=== PATIENT | female | born 1975 | race Caucasian/White ===

== ENCOUNTER → 2021-09-20 13:59 | Outpatient (REF) | payer BC, SELFPAY | LOC: ANHLAB 13:59 | PROVIDERS: PCP Internal Medicine; Visit Provider Nurse Practitioner | DX: C44.712 Basal cell carcinoma of skin of right lower limb, including hip (principal) | CPT/HCPCS: 88305; 88342 ==

== ENCOUNTER 2021-11-21 09:00 | Outpatient (NON) | payer BC, SELFPAY | END 2021-11-21 09:01 | disposition home or self-care (01) | LOC: ANHLAB 11-23 13:00 | PROVIDERS: PCP Internal Medicine; Visit Provider Surgery Plastic and Reconstructive Surgery | DX: D22.5 Melanocytic nevi of trunk (principal) | CPT/HCPCS: 88305; 88342 ==

== ENCOUNTER 2021-11-21 14:12 | Outpatient (NON) | payer BC, SELFPAY | END 2021-11-21 14:13 | disposition home or self-care (01) | LOC: ANHLAB 14:12 | PROVIDERS: PCP Internal Medicine; Visit Provider Surgery Plastic and Reconstructive Surgery | DX: C44.712 Basal cell carcinoma of skin of right lower limb, including hip (principal) | CPT/HCPCS: 88305; 88331 ==

== ENCOUNTER 2022-02-07 17:42 | Emergency (ER) | payer BC, SELFPAY ==
--- NOTE | ~2022-02-07 | CT_ITS ---
EXAMINATION: CT abdomen pelvis wo con DATE: 02/07/2022 21:02 INDICATION: right flank pain TECHNIQUE: Computed tomography (CT) of the abdomen and pelvis was performed without intravenous contr ast. Automated exposure control and iterative reconstruction technique were employed. The dose-length product was 507.93 mGy-cm. COMPARISON: None. FINDINGS: Lower thorax: Unremarkable Liver: Normal. Biliary/Gallbladder: Gallbladder is normal. No bile duct dilation. Pancreas: No mass or duct dilation. Spleen: Normal. Adrenals:No mass. Kidneys: Right mid and lower pole scarring. Simple right upper pole cyst. Mid and lower pole nonobstr ucting renal calculi. Left kidney is normal GI tract: No small or large bowel dilation. Normal appendix. Mesentery/Peritoneum: Mild fat stranding at the level of the celiac axis and the head of the pancreas . No ascites, mass, or free air. Retroperitoneum: No mass. Pelvis: Pelvic organs are within normal limits. Soft Tissues: Soft tissues and body wall unremarkable. Bones: No acute osseous finding. IMPRESSION: Upper mesenteric fat stranding may reflect pancreatitis in the appropriate context, versus nonspecifi c mesenteric edema. No CT evidence of obstructive uropathy. Right nephrolithiasis. Reviewed, dictated and finalized at location K. TRUCTION EQUIPMENT MECHANIC HELPER IMPRESSION: Upper mesenteric fat stranding may reflect pancreatitis in the appropriate cont ext, versus nonspecific mesenteric edema. No CT evidence of obstructive uropath y. Right nephrolithiasis.
[2022-02-07 17:51] VITALS: BP 150/86; PULSE 79; RESP 20; TEMP 36.8; O2SAT 98
[2022-02-07 18:13] LABS: Basophils Percent Auto 0.4 % (0.2-1.2); Eosinophils Absolute Auto 0.1 K/mm3 (0-0.3); Eosinophils Percent Auto 1.9 % (0-4.4); Hematocrit 36.8 % (37.0-47.0); Hemoglobin 12.8 g/dL (12.0-15.0); Immature Granulocyte Absolute 0.01 K/mm3 (0.00-0.031); Immature Granulocyte Percent A 0.1 % (0-0.5); Lymphocytes Absolute Auto 2.52 K/mm3 (0.9-3.2); Lymphocytes Percent Auto 37.4 % (18.3-44.2); Mean Corpuscular HGB Conc 34.8 g/dl (32-36); Mean Corpuscular Hemoglobin 31.5 pg (26-34); Mean Corpuscular Volume 90.6 fl (80-100); Mean Platelet Volume 10.2 fl (7.4-10.4); Monocytes Absolute Auto 0.5 K/mm3 (0.1-0.6); Monocytes Percent Auto 6.7 % (2.6-8.5); Neutrophils Absolute Auto 3.6 K/mm3 (1.3-6.7); Neutrophils Percent Auto 53.5 % (45.5-73.1); Platelet Count Result 263 k/mm3 (150-375); Red Blood Count 4.06 M/mm3 (4.2-5.4); Red Cell Distribution Width 12.4 % (11.5-14.5); White Blood Count 6.7 K/mm3 (4.5-10.0)
[2022-02-07 18:14] LABS: Appearance Urine Clear (Clear); Bilirubin Urine Negative (Negative); Blood Urine 2+ (Negative); Color Urine Light Yellow (Yellow); Glucose Urine UA Negative (Negative); Ketones Urine Negative (Negative); Leukocyte Esterase Ur Negative LEU/UL (Negative); Nitrate Urine Negative (Negative); Protein Urine Negative (Negative); Specific Grav Ur <= 1.005 (1.001-1.035); Urobilinogen Urine 0.2 mg/dL (<2.0)
[2022-02-07 18:16] LABS: Bacteria Urine Trace /hpf; Squamous Epithelial Cell Urine Rare /hpf (Few)
[2022-02-07 18:17] LABS: Add Urine Microscopic? YES
[2022-02-07 18:25] LABS: Alanine Aminotransferase 23 U/L (6-35); Albumin Level 4.9 g/dL (3.5-5.1); Alkaline Phosphatase 54 U/L (38-126); Anion Gap 9 mmol/L (8-16); Aspartate Amino Transferase 35 U/L (14-36); Bilirubin,Total 0.4 mg/dL (0.2-1.3); Blood Urea Nitrogen 17 mg/dL (7-17); Calcium 9.3 mg/dL (8.4-10.2); Carbon Dioxide 27 mmol/L (22-30); Chloride 100 mmol/L (98-107); Estimated CRCL calculation 81 ml/min; Estimated Glomerular Filt Rate > 60; Glucose 140 mg/dL (65-110); Lipase 219 U/L (23-300); Potassium 3.9 mmol/L (3.4-5.0); Sodium 136 mmol/L (137-145)
--- NOTE | 2022-02-07 21:07 | PC.NURSE ---
patient currently refusing IV at this time. Dr. birmingham.
--- NOTE | 2022-02-07 21:44 | ED.GENADULT ---
HPI - General Adult General Chief complaint: Abdominal Pain Stated complaint: R side pain, nausea Time Seen by Provider: 02/07/22 20:34 History of Present Illness HPI narrative: Patient is a 46-year-old female who presents the emergency department with a chief complaint of abdominal and flank pain. Patient reports start having pain in her right flank area radiates to the right upper quadrant and epigastric region. The patient reports that she recently started a new diet patient reports symptoms are not improving or they are worsening Related Data Home Medications Medication Instructions Recorded Confirmed sertraline 50 mg tablet 50 mg PO DAILY 10/01/19 01/13/22 Allergies Allergy/AdvReac Type Severity Reaction Status Date / Time Penicillins Allergy Unknown Rash Verified 02/07/22 20:36 levofloxacin [From Levaquin] AdvReac Severe Rash Verified 02/07/22 20:36 Review of Systems Review of Systems: A 10 system review of systems was completed on the patient and is negative except for what is stated in the HPI. Nursing and ancillary documentation was reviewed. [facility] Past Medical History Medical History AK (actinic keratosis) Social History Social History Smoking status: Never smoker Alcohol intake: never Substance use: never Substance use type: does not use Gender identity (if verbalized by the patient): Female Sexual Orientation (if Verbalized by the Patient): Straight or Heterosexual Exam Narrative: GENERAL: Well-appearing, well-nourished, and in no acute distress. HEAD: Normocephalic, atraumatic. EYES: PERRLA and EOMI. ENT: Nares clear, no rhinorrhea or epistaxis. Mucous membranes moist. NECK: Supple. CHEST: Clear to auscultation. No respiratory distress. HEART: Regular rate and rhythm. No murmur heard. Normal peripheral pulses. ABDOMEN: Soft, nontender, nondistended, normal active bowel sounds. EXTREMITIES: Normal range of motion. No edema. SKIN: Warm, dry, no rash. NEURO: No focal deficits. Alert and oriented x3. PSYCH: Normal mood and affect. Course Course Emergency Course: CT scan showed no evidence of obstructing stone there was question as to whether there is some inflammation around the pancreas is on the CT scan but no evidence of lipase elevation. Vital Signs Vital signs: Vital Signs Temperature 36.8 C 02/07/22 17:51 Pulse Rate 79 02/07/22 17:51 Respiratory Rate 20 02/07/22 17:51 Blood Pressure 150/86 H 02/07/22 17:51 Pulse Oximetry 98 02/07/22 17:51 Oxygen Delivery Room Air 02/07/22 17:51 Temperature 36.8 C 02/07/22 17:51 Pulse Rate 79 02/07/22 17:51 Respiratory Rate 20 02/07/22 17:51 Blood Pressure 150/86 H 02/07/22 17:51 Pulse Oximetry 98 02/07/22 17:51 Oxygen Delivery Room Air 02/07/22 17:51 Medical Decision Making Vital Signs Vital Signs: Vital Signs Temperature 36.8 C 02/07/22 17:51 Pulse Rate 79 02/07/22 17:51 Respiratory Rate 20 02/07/22 17:51 Blood Pressure 150/86 H 02/07/22 17:51 Pulse Oximetry 98 02/07/22 17:51 Oxygen Delivery Room Air 02/07/22 17:51 Temperature 36.8 C 02/07/22 17:51 Pulse Rate 79 02/07/22 17:51 Respiratory Rate 20 02/07/22 17:51 Blood Pressure 150/86 H 02/07/22 17:51 Pulse Oximetry 98 02/07/22 17:51 Oxygen Delivery Room Air 02/07/22 17:51 Lab Data 02/07/22 17:59 02/07/22 17:59 Labs: Lab Results 02/07/22 02/07/22 02/07/22 Range/Units 17:59 17:59 17:59 WBC 6.7 (4.5-10.0) K/mm3 RBC 4.06 L (4.2-5.4) M/mm3 Hgb 12.8 (12.0-15.0) g/dL Hct 36.8 L (37.0-47.0) % MCV 90.6 (80-100) fl MCH 31.5 (26-34) pg MCHC 34.8 (32-36) g/dl RDW 12.4 (11.5-14.5) % Plt Count 263 (150-375) k/mm3 MPV 10.2 (7.4-10.4) fl Immature Gran % (Auto) 0.1 (0-0.5) % Neut %
[2022-02-07 23:48] VITALS: BP 120/79; PULSE 96; RESP 16; O2SAT 99
== END 2022-02-07 23:48 | disposition home or self-care (01) ==
PROVIDERS: Emergency Medicine; Emergency Provider Emergency Medicine; PCP Internal Medicine
DX: R10.84 Generalized abdominal pain (principal); N20.0 Calculus of kidney; R93.2 Abnormal findings on diagnostic imaging of liver and biliary tract
CPT/HCPCS: 36415; 74176; 80053; 81001; 81025; 83690; 85025; 99284

== ENCOUNTER 2022-02-12 09:08 | Inpatient (IN) | payer BC, SELFPAY ==
[2022-02-12] VITALS (32 sets, daily range): BP systolic 93–130; BP diastolic 51–82; PULSE 72–120; RESP 16–22; TEMP 36.4–37.2; O2SAT 93–100; BMI 27.3
--- NOTE | ~2022-02-12 | XR_ITS ---
EXAMINATION: XR retrograde pyelo w/stent RT DATE: 02/12/2022 16:00 SIMULATION ANALYST INDICATION: RT SIDED STENT PLACEMENT WITH RETROGRADE . TECHNIQUE: 5 fluoroscopic images of the right abdomen and pelvis were obtained during right retrograd e pyelography with right-sided stent placement performed by the surgeon. I was not present in the ope rating room. Fluoroscopy exposure time was 24.8 seconds. DAP [id number] mGym2. COMPARISON: CT abdomen and pelvis, same date FINDINGS: Catheter and wire access to the upper collecting system on the right. Moderate right caliectasis. Ext ravasated contrast noted at the right upper pole. Right ureteral stent proximal coil in the right jose al pelvis, distal coil ejecting over the bladder. IMPRESSION: Fluoroscopic documentation of right retrograde pyelography with stent placement. Please refer to the operative note for complete procedural details . Reviewed, dictated and finalized at location K. LATION ANALYST IMPRESSION: Fluoroscopic documentation of right retrograde pyelography with stent placement . Please refer to the operative note for complete procedural details .
--- NOTE | ~2022-02-12 | XR_ITS ---
EXAM: XR abdomen/kub 1V DATE: 02/13/2022 17:16 HISTORY: surgical planning/right ureteral stone . COMPARISON: CT abdomen and pelvis, 02/12/2022. FINDINGS: Minimal bibasilar atelectasis. Right ureteral stent, in good position. Normal bowel gas pa ttern. No organomegaly. Multiple right inferior pole calcifications measuring 11, 4, and 3 mm. 11 mm calcification likely projects over the right UPJ as seen in the prior CT. Regional bones and soft tis sues normal for age. IMPRESSION: Right ureteral stent, in good position. Right nephrolithiasis. Reviewed, dictated and finalized at location K. CULTURAL EQUIPMENT DESIGN ENGINEER
--- NOTE | ~2022-02-12 | CT_ITS ---
EXAMINATION:CT diagnostic chest w con DATE: 02/12/2022 12:56 INDICATION: Right upper quadrant abdominal pain. Right back pain. TECHNIQUE: Computed tomography (CT) of the chest was performed with 75 mL Omnipaque 350 intravenous c ontrast. Automated exposure control and iterative reconstruction technique were employed. The dose-le ngth product (DLP) was 146.05 mGy-cm. COMPARISON: CT abdomen and pelvis 02/07/2022 FINDINGS: There is mild scarring at the lung apices. There is mild atelectasis bilaterally. There are small pleural effusions. The heart size is normal. No pericardial effusion. There is edema in right perinephric space. There is mild thoracic spondylosis. IMPRESSION: 1. Small pleural effusions. 2. Partially visualized edema in right perinephric space. Given the right-sided kidney stones seen on the prior CT, consider CT abdomen and pelvis without contrast to rule out ureteral stone. Reviewed, dictated and finalized at location A. FINISHER IMPRESSION: 1. Small pleural effusions. 2. Partially visualized edema in right perinephric space. Given the right-sided kidney stones seen on the prior CT, consider CT abdomen and pelvis without con trast to rule out ureteral stone.
--- NOTE | ~2022-02-12 | CT_ITS ---
EXAMINATION: CT abdomen pelvis wo con DATE: 02/12/2022 13:34 INDICATION: Right upper quadrant abdominal pain. TECHNIQUE: Computed tomography (CT) of the abdomen and pelvis was performed without intravenous contr ast. Automated exposure control and iterative reconstruction technique were employed. The dose-length product was 540.65 mGy-cm. COMPARISON: CT abdomen and pelvis 02/07/2022 FINDINGS: The visualized portions of the lung bases demonstrate mild atelectasis. There are small ple ural effusions. The heart size is normal. No pericardial effusion. The liver, gallbladder, spleen, pa ncreas, adrenal glands, and left kidney are normal. There is moderate atrophy of right kidney. There is a 7 mm stone in proximal right ureter. There is contrast in the renal collecting system from the C T earlier today. There is mild right hydronephrosis. There is calyceal rupture in right kidney upper pole with urinoma with contrast in the right perinephric space. There are no dilated loops of bowel. The appendix is normal. There are no pathologically enlarged lymph nodes. There is trace ascites in r ight paracolic gutter. There is mild thoracic spondylosis. IMPRESSION: 1. 7 mm stone in proximal right ureter with mild right hydronephrosis and upper pole calyceal rupture with right retroperitoneal urinoma. 2. Moderate atrophy of right kidney. 3. Small pleural effusions. Reviewed, dictated and finalized at location A. ER CUTTER
--- NOTE | ~2022-02-12 | XR_ITS ---
EXAMINATION: XR abdomen/kub 1V INDICATION: Postoperative abdominal pain TECHNIQUE: Supine view of the abdomen is obtained. COMPARISON: 02/13/2022 FINDINGS: A right internal ureteral stent is in expected position. Again seen is a 9 mm stone adjacen t to the proximal stent. There are adjacent 3 mm stones of the right kidney lower pole. No additional urolithiasis is identified. The bowel gas pattern is normal. IMPRESSION: 1. Right internal ureteral stent in expected position with stable stones in the right kidney lower po le and adjacent to the proximal aspect of the stent. Reviewed, dictated and finalized at location A. [employer] IMPRESSION: 1. Right internal ureteral stent in expected position with stable stones in the right kidney lower pole and adjacent to the proximal aspect of the stent.
--- NOTE | ~2022-02-12 | CT_ITS ---
EXAMINATION: CT abdomen pelvis wo/w con DATE: 02/15/2022 15:48 INDICATION: Severe postoperative pain TECHNIQUE: Computed tomography (CT) of the abdomen and pelvis was performed without intravenous contr ast. CT of the abdomen and pelvis was then performed with a total of 130 mL Omnipaque 350 intravenous contrast using a double-bolus technique for simultaneous opacification of the renal parenchyma and r enal collecting system. The dose-length product (DLP) was 2179.99 mGy-cm. Automated exposure control and iterative reconstruction technique were employed. COMPARISON: None FINDINGS: There is a [id number] size right pleural effusion with passive atelectasis of the ri ght lower lobe. There is a small left pleural effusion with mild dependent atelectasis. The heart siz e is normal. The liver, spleen, pancreas, gallbladder, and adrenal glands are normal. A right interna l ureteral stent has been placed in expected position. There is a 7 mm stone adjacent to the proximal aspect of the stent. Previously described calyceal rupture and urinoma in the right perinephric spac e persists but has decreased in size. There is a small volume of ascites. The left kidney is unremark able. No pathologically enlarged abdominal or pelvic lymph nodes are identified. There is no free int raperitoneal gas or evidence of bowel obstruction. Cain catheter is present in the bladder. A small amount of gas in the urinary bladder is likely due to the Cain catheter or recent intervention. Ther e is a small left inguinal hernia containing fat. IMPRESSION: 1. Interval placement of a right internal ureteral stent in expected position with 7 mm stone adjacen t to the proximal stent. 2. Persistent but decreased urinoma adjacent to the right kidney. 3. Small to moderate size right and small left pleural effusions with bibasilar atelectasis. Reviewed, dictated and finalized at location A. [employer] IMPRESSION: 1. Interval placement of a right internal ureteral stent in expected position w ith 7 mm stone adjacent to the proximal stent. 2. Persistent but decreased urinoma adjacent to the right kidney. 3. Small to moderate size right and small left pleural effusions with bibasilar atelectasis.
[2022-02-12 09:48] LABS: Basophils Percent Auto 0.1 % (0.2-1.2); Hematocrit 34.4 % (37.0-47.0); Hemoglobin 11.5 g/dL (12.0-15.0); Immature Granulocyte Percent A 1.5 % (0-0.5); Lymphocytes Absolute Auto 0.75 K/mm3 (0.9-3.2); Lymphocytes Percent Auto 5.6 % (18.3-44.2); Mean Corpuscular HGB Conc 33.4 g/dl (32-36); Mean Corpuscular Hemoglobin 30.9 pg (26-34); Mean Corpuscular Volume 92.5 fl (80-100); Mean Platelet Volume 10.9 fl (7.4-10.4); Monocytes Absolute Auto 0.4 K/mm3 (0.1-0.6); Monocytes Percent Auto 3.1 % (2.6-8.5); Neutrophils Absolute Auto 12.1 K/mm3 (1.3-6.7); Neutrophils Percent Auto 89.7 % (45.5-73.1); Platelet Count Result 179 k/mm3 (150-375); Red Blood Count 3.72 M/mm3 (4.2-5.4); Red Cell Distribution Width 12.8 % (11.5-14.5); White Blood Count 13.5 K/mm3 (4.5-10.0)
[2022-02-12 10:01] LABS: Alanine Aminotransferase 56 U/L (6-35); Albumin Level 3.9 g/dL (3.5-5.1); Alkaline Phosphatase 78 U/L (38-126); Anion Gap 6 mmol/L (8-16); Aspartate Amino Transferase 51 U/L (14-36); Bilirubin,Total 1.6 mg/dL (0.2-1.3); Blood Urea Nitrogen 11 mg/dL (7-17); Calcium 8.5 mg/dL (8.4-10.2); Carbon Dioxide 24 mmol/L (22-30); Chloride 100 mmol/L (98-107); Estimated CRCL calculation 72 ml/min; Estimated Glomerular Filt Rate > 60; Glucose 161 mg/dL (65-110); Lipase 42 U/L (23-300); Potassium 4.1 mmol/L (3.4-5.0); Sodium 130 mmol/L (137-145)
[2022-02-12 10:08] LABS: Appearance Urine Clear (Clear); Bilirubin Urine 2+ (Negative); Blood Urine 2+ (Negative); Color Urine Yellow (Yellow); Glucose Urine UA Negative (Negative); Ketones Urine 4+ mg/dL (Negative); Leukocyte Esterase Ur Negative LEU/UL (Negative); Nitrate Urine Negative (Negative); Protein Urine 2+ mg/dL (Negative); Specific Grav Ur 1.025 (1.001-1.035); pH Urine 5.5 (5.0-9.0)
[2022-02-12 10:09] LABS: Bacteria Urine Trace /hpf; Mucus Urine Rare /lpf; Squamous Epithelial Cell Urine Occasional /hpf (Few); WBC Urine 0-3 /hpf
[2022-02-12 10:14] LABS: Add Urine Microscopic? YES
--- NOTE | 2022-02-12 10:59 | ED.ABDPAIN ---
HPI - Abdominal Pain General Chief Complaint: Abdominal Pain Stated Complaint: R BACK PAIN XWK Time Seen by Provider: 02/12/22 10:33 History of Present Illness HPI narrative: This is a 46-year-old female who denies past medical history, returning emergency department complaining of right upper quadrant abdominal pain. Patient states she was here approximately a week ago with similar pain. Reportedly imaging at the time showed mild swelling around the pancreas but no other obvious causes. Patient states she initially had improvement of her pain but approximately 4 days ago had recurrent pain. She was evaluated at an outside emergency department (reportedly with a right upper quadrant ultrasound) again without an obvious cause. Today she complains of sharp 8/10, right upper quadrant abdominal pain radiating from the back to the abdomen without any associated fevers or chills. Related Data Home Medications Medication Instructions Recorded Confirmed sertraline 50 mg tablet 50 mg PO DAILY 10/01/19 01/13/22 Allergies Allergy/AdvReac Type Severity Reaction Status Date / Time Penicillins Allergy Unknown Rash Verified 02/12/22 10:34 levofloxacin [From Levaquin] AdvReac Severe Rash Verified 02/12/22 10:34 Review of Systems Review of Systems: CONSTITUTIONAL: Denies fever, chills, or sweats. EYES: Denies visual changes, redness, or discharge. ENT: Denies rhinorrhea, congestion, sore throat, or otalgia. CARDIOVASCULAR: Denies chest pain, palpitations, or edema. RESPIRATORY: Denies cough or dyspnea. GASTROINTESTINAL: Abdominal pain denies nausea, vomiting, or diarrhea. GENITOURINARY: Denies dysuria or hematuria. SKIN: Denies rash or itching. MUSCULOSKELETAL: Denies back pain, joint pain, or myalgia. NEUROLOGIC: Denies headache, numbness, dizziness, or weakness. PSYCHIATRIC: Denies anxiety or depression. [facility] Past Medical History Medical History AK (actinic keratosis) Social History Social History Smoking status: Never smoker Alcohol intake: never Substance use: never Substance use type: does not use Gender identity (if verbalized by the patient): Female Sexual Orientation (if Verbalized by the Patient): Straight or Heterosexual Exam Narrative: GENERAL: Well-developed, well-nourished, in moderate distress due to pain HEAD: Normocephalic, atraumatic. EYES: PERRLA and EOMI. ENT: Nares clear, no rhinorrhea or epistaxis. Mucous membranes moist. Oropharynx without tonsillar hypertrophy exudate or other lesions. NECK: Supple. No adenopathy or masses. No carotid bruits or JVD CHEST: Clear to auscultation. No respiratory distress. No wheezes rales or rhonchi HEART: Regular rate and rhythm. No murmur heard. Normal peripheral pulses. ABDOMEN: Soft, tender palpation of the right upper quadrant without rebound, nondistended, normal active bowel sounds. Right CVA tenderness to palpation, no CVA tenderness of the left EXTREMITIES: Normal range of motion. No edema. SKIN: Warm, dry, no rash. NEURO: No focal deficits. Alert and oriented x3. PSYCH: Normal mood and affect. Course Course Emergency Course: 10:56 - Given the patient's recent unremarkable imaging, will obtain a CT of the chest and attempt to spare additional radiation to the abdomen. UA shows small amount of hematuria without changes concerning for UTI. WBC elevated to 13. 13:26 - CT shows perinephric fluid without acute intrathoracic process. Radiology recommends noncon CT abdomen pelvis to evaluate for stone. Reevaluated patient, she states her pain is improved. 13:51 - CT abdomen pelvis demonstrates a 7 mm obstructing stone on the right with upper pole calyceal rupture and urinoma. Urology paged for consult. 14:45 - Discussed patient with urologist, Dr. Valle, who accepts the patient to OR for stent placement. Discussed recommendations with the
[2022-02-12] MEDS: KETOROLAC 30 MG/ML VIAL (*BKC) IV PUSH (11:05)
[2022-02-12 12:32] LABS: Pregnancy On Board Control Positive; Urine Pregnancy Test Negative
[2022-02-12] MEDS: ONDANSETRON INJ 4 MG/2 ML VIAL IV PUSH (13:52)
[2022-02-12] MEDS: MORPHINE SULFATE (*CRX) 4 MG/ML INJ 6 MG IV PUSH (13:52)
--- NOTE | 2022-02-12 14:50 | PM.IMHP ---
H&P: HPI History of Present Illness Date/Time: 02/12/22 14:50 Chief Complaint: Obstructing 7 mm right proximal ureteral calculus with calyceal rupture and urinoma Narrative: 46 year old female with repeated returns to ER found to have an obstructing 7mm right proximal ureteral calculus. In addition there is a rupture of a fornyx with extravasation and urinoma formation. Review of Systems Review of Systems: All systems reviewed & are unremarkable except as noted in HPI and below PMFSH Past Medical History Medical History AK (actinic keratosis) Social History Social History Smoking status: Never smoker Alcohol intake: never Substance use: never Substance use type: does not use Gender identity (if verbalized by the patient): Female Sexual Orientation (if Verbalized by the Patient): Straight or Heterosexual Meds Home Medications and Allergies Home Medications Medication Instructions Recorded Confirmed Type sertraline 50 mg tablet 50 mg PO DAILY 10/01/19 01/13/22 History Allergies Allergy/AdvReac Type Severity Reaction Status Date / Time Penicillins Allergy Unknown Rash Verified 02/12/22 10:34 levofloxacin [From Levaquin] AdvReac Severe Rash Verified 02/12/22 10:34 Vital Signs Vital Signs - 24 hr 02/12/22 09:28 02/12/22 10:47 02/12/22 11:01 Temperature 36.7 C Pulse Rate 120 H 74 82 Respiratory Rate 16 18 20 Blood Pressure 112/68 130/78 129/82 Pulse Oximetry 99 100 100 Oxygen Delivery Room Air 02/12/22 11:15 02/12/22 11:30 02/12/22 11:45 Temperature Pulse Rate 84 80 78 Respiratory Rate 18 18 17 Blood Pressure 120/76 115/70 111/65 Pulse Oximetry 97 95 95 Oxygen Delivery 02/12/22 12:00 02/12/22 12:15 02/12/22 12:30 Temperature Pulse Rate 76 80 72 Respiratory Rate 18 18 18 Blood Pressure 112/68 110/59 L 114/68 Pulse Oximetry 97 98 100 Oxygen Delivery 02/12/22 12:58 02/12/22 13:00 02/12/22 13:15 Temperature Pulse Rate 77 77 Respiratory Rate 17 18 Blood Pressure 104/63 103/61 102/64 Pulse Oximetry 99 99 98 Oxygen Delivery 02/12/22 13:37 02/12/22 13:59 02/12/22 14:00 Temperature Pulse Rate Respiratory Rate Blood Pressure 104/65 103/67 Pulse Oximetry 100 100 93 Oxygen Delivery 02/12/22 14:01 02/12/22 14:15 02/12/22 14:16 Temperature Pulse Rate Respiratory Rate Blood Pressure 103/65 110/66 Pulse Oximetry 100 99 100 Oxygen Delivery 02/12/22 14:30 02/12/22 14:31 Temperature Pulse Rate Respiratory Rate Blood Pressure 105/68 Pulse Oximetry 96 100 Oxygen Delivery Exam Const: General: cooperative; No comfortable Resp: Effort & Inspection: normal respiratory effort Cardio: Rate: regular rate Rhythm: regular rhythm H&P: Results Labs Labs: Short CBC 02/12/22 Range/Units 09:38 WBC 13.5 H (4.5-10.0) K/mm3 Hgb 11.5 L (12.0-15.0) g/dL Hct 34.4 L (37.0-47.0) % Plt Count 179 (150-375) k/mm3 BMP 02/12/22 09:38 Sodium 130 L Potassium 4.1 Chloride 100 Carbon Dioxide 24 BUN 11 D Creatinine 0.90 Glucose 161 H Calcium 8.5 Liver Function 02/12/22 Range/Units 09:38 Total Bilirubin 1.6 H (0.2-1.3) mg/dL AST 51 H (14-36) U/L ALT 56 H (6-35) U/L Alkaline Phosphatase 78 (38-126) U/L Albumin 3.9 (3.5-5.1) g/dL Urine 02/12/22 Range/Units 09:49 Urine Color Yellow (Yellow) Urine Appearance Clear (Clear) Urine pH 5.5 (5.0-9.0) Ur Specific [place] 1.025 (1.001-1.035) Urine Protein 2+ H (Negative) mg/dL Urine Glucose (UA) Negative (Negative) mg/dL Assessment and Plan Assessment and plan (1) Right ureteral calculus: Code(s): N20.1 - Calculus of ureter Status: Acute Assessment and Plan: Proceed with cysto, right retrograde, right ureteral stent placem
--- NOTE | 2022-02-12 14:57 | WPDHPUPDATE1 ---
History and Physical Update Update Date/Time: 02/12/22 14:57 History and Physical has been reviewed, including an updated exam of the patient. There are NO changes in the patient's condition. Risks, benefits, and alternatives have been discussed and questions answered. Patient agrees to proceed with procedure.
[2022-02-12] MEDS: SODIUM CHLORIDE 0.9% IV 1,000 ML 125 ML IV CONT (15:06)
[2022-02-12 15:29] LABS: INR 1.3; Prothrombin Time 15.3 Seconds (11.1-14.7)
--- NOTE | 2022-02-12 15:46 | WPDANESEPPF ---
Anes - Initial Pre Proc Eval Procedure: Operation Date: 02/12/22 15:45 Proposed Procedures p Cysto, RPG, Stone Ext, Stent Placement - Jan Valle MD Date/Time: 02/12/22 15:46 Surgeon: Jan Valle MD Pre Op Diagnosis: Kidney Stone Patient Data Age: 46 Gender: F Height: 1.75 m Weight: 79.5 kg Last Vital Signs Temp 36.7 C 02/12/22 09:28 Pulse 77 02/12/22 13:00 Resp 18 02/12/22 13:00 BP 105/68 02/12/22 14:30 Pulse Ox 100 02/12/22 14:31 O2 Del Method Room Air 02/12/22 09:28 Allergies Allergy/AdvReac Type Severity Reaction Status Date / Time Penicillins Allergy Unknown Rash Verified 02/12/22 10:34 levofloxacin [From Levaquin] AdvReac Severe Rash Verified 02/12/22 10:34 Home Medications Medication Instructions Recorded Confirmed Type sertraline 50 mg tablet 50 mg PO DAILY 10/01/19 01/13/22 History Laboratory Tests 02/12/22 02/12/22 02/12/22 09:38 09:38 09:49 WBC 13.5 K/mm3 H K/mm3 (4.5-10.0) RBC 3.72 M/mm3 L M/mm3 (4.2-5.4) Hgb 11.5 g/dL L g/dL (12.0-15.0) Hct 34.4 % L % (37.0-47.0) MCV 92.5 fl fl (80-100) MCH 30.9 pg pg (26-34) MCHC 33.4 g/dl g/dl (32-36) RDW 12.8 % % (11.5-14.5) Plt Count 179 k/mm3 k/mm3 (150-375) MPV 10.9 fl H fl (7.4-10.4) Immature Gran % (Auto) 1.5 % H % (0-0.5) Neut % (Auto) 89.7 % H % (45.5-73.1) Lymph % (Auto) 5.6 % L % (18.3-44.2) [place] % (Auto) 3.1 % % (2.6-8.5) Eos % (Auto) 0.0 % % (0-4.4) Baso % (Auto) 0.1 % L % (0.2-1.2) Lymph # (Auto) 0.75 K/mm3 L K/mm3 (0.9-3.2) [place] # (Auto) 0.4 K/mm3 K/mm3 (0.1-0.6) Eos # (Auto) 0.0 K/mm3 K/mm3 (0-0.3) Baso # (Auto) 0.0 K/mm3 K/mm3 (0.0-0.1) Abs Immat Gran (auto) 0.20 K/mm3 H K/mm3 (0.00-0.031) Absolute Neuts (auto) 12.1 K/mm3 H K/mm3 (1.3-6.7) Absolute Nucleated RBC 0.0 K/mm3 K/mm3 (0.0-0.012) Nucleated RBC % 0.0 % % (0.0-0.2) PT INR Sodium 130 mmol/L L mmol/L (137-145) Potassium 4.1 mmol/L mmol/L (3.4-5.0) Chloride 100 mmol/L mmol/L (98-107) Carbon Dioxide 24 mmol/L mmol/L (22-30) Anion Gap 6 mmol/L L mmol/L (8-16) BUN 11 mg/dL D mg/dL (7-17) Creatinine 0.90 mg/dL mg/dL (0.7-1.0) Estim Creat Clear Calc 72 ml/min ml/min Estimated GFR > 60 (59 - ) Glucose 161 mg/dL H mg/dL (65-110) Calcium 8.5 mg/dL mg/dL (8.4-10.2) Total Bilirubin 1.6 mg/dL H mg/dL (0.2-1.3) AST 51 U/L H U/L (14-36) ALT 56 U/L H U/L (6-35) Alkaline Phosphatase 78 U/L U/L (38-126) Total Protein 7.0 g/dL g/dL (6.3-8.2) Albumin 3.9 g/dL g/dL (3.5-5.1) Lipase 42 U/L U/L (23-300) Urine Color Yellow (Yellow) Urine Appearance Clear (Clear) Urine pH 5.5 (5.0-9.0) Ur Specific [place] 1.025 (1.001-1.035) Urine Protein 2+ mg/dL H mg/dL (Negative) Urine Glucose (UA) Negative mg/dL mg/dL (Negative) Urine Ketones 4+ mg/dL H mg/dL (Negative) Ur Blood (Man) 2+ H (Negative) Urine Nitrate Negative (Negative) Urine Bilirubin 2+ H (Negative) Urine Urobilinogen 1.0 mg/dL mg/dL (<2.0) Leukocyte Esterase Rfl Negative [place]/UL [place]/UL (Negative) Urine RBC 6-10 /hpf H /hpf (0-2) Urine WBC 0-3 /hpf /hpf Ur Squamous Epith Cells Occasional /hpf /hpf (Few) Urine Bacteria Trace /hpf /hpf Urine Mucus Rare /lpf /lpf Urine Test 02/12/22 02/12/22 12:26 15:11 WBC RBC Hgb Hct
[2022-02-12] MEDS: ceFAZolin 2 GM/D5W 50 ML 2 GM/50 ML BAG IVPB (15:54)
[2022-02-12] MEDS: LIDOCAINE HCL 2% GEL UROJET 10 ML PKG MUCOUS MEM (16:06)
--- NOTE | 2022-02-12 16:14 | W.PM.PROC2 ---
Procedure Note - Detailed Date of Procedure 02/12/22 Pre-op Diagnosis Right ureteral calculus with forniceal rupture Post-op Diagnosis Same Procedure Performed cystoscopy, right ureteral stent placement 4.8 Vietnamese contour Surgeon Jan Valle MD Anesthesia General Description of Procedure patient is taken to the operative suite correctly identified. Once anesthesia was obtained she was placed in dorsal lithotomy position and prepped and draped usual sterile fashion. Twenty-two Vietnamese scope was inserted the bladder. There was no tumors noted the right ureteral orifice was cannulated with a guidewire and we were able to manipulated past the impacted stone at the UPJ area. We then placed a 4.8 Vietnamese contour stent with the proximal end coiled in the renal pelvis and the distal in the bladder. There was some efflux of some Cloudy urine. 2% viscous lidocaine was inserted into the urethra patient is taken recovery stable condition. If he does well in recovery she will be discharged home with antibiotics as well as some oxybutynin. She also has narcotics on hand. Will await urine culture plan on outpatient lithotripsy in the near future. Please send a copy this report to my office Estimated Blood Loss 0 Drains Yes Packing No Pathology None sent Complications No immediate complications Condition Stable Disposition PACU
[2022-02-12] MEDS: LACTATED RINGERS 1,000 ML 30 ML IV CONT ×4 (16:18→20:09)
[2022-02-12] MEDS: oxyCODONE HCL (*CRX) 5 MG TAB IR PO (17:50)
[2022-02-12] MEDS: OXYBUTYNIN CHLORIDE 5 MG TABLET PO (18:25)
--- NOTE | 2022-02-12 20:10 | SUR.PHASEII ---
1811- Dr. Valle notified of patient's continued pain along with low BP 90/50's. Ordered to give patient more time after receiving anesthesia and more IV fluids along with 5mg of Oxybutynin for pain control. 1906- Dr. Valle notified of patient's improvement in pain but of no change in patient's BP despite 3L of LR infused. Orders received to admit patient for observation over night. 1910- steam and power supervisor made aware patient needed bed placement. 1934- Bed placement received for patient. Patient and updated on patient being admitted to room 320. 2009- Patient transferred to room 320 with all belongings. Report given to LOCO Cervantes.
--- NOTE | 2022-02-12 20:20 | ADMGEN ---
This patient, Abeba Stacy, was admitted to [facility]. Patient/family oriented to hospital policies and general routines including ID bracelet, bed and alarms, visiting hours, pain management, procedures, bathroom and other care routines, personal items, smoking policy, room service/diet, and visiting hours. Information on how to activate the Rapid Response Team has been discussed. Patient/Family are encouraged to report perceived risks to care and to ask questions if they do not understand what they are told or what they should do.
[2022-02-12] MEDS: DEXTROSE 5%/LACTATED RINGERS 1,000 ML 125 ML IV CONT (21:32)
[2022-02-12] MEDS: HYDROcodone/acetaminophen (*CRX) 5-325 MG TABLET 2 TAB PO (21:36)
[2022-02-13] MEDS: HYDROcodone/acetaminophen (*CRX) 5-325 MG TABLET 1 TAB PO ×3 (05:10→21:32)
[2022-02-13] MEDS: DEXTROSE 5%/LACTATED RINGERS 1,000 ML 125 ML IV CONT ×4 (05:10→21:33)
[2022-02-13 05:54] VITALS: BP 109/74; PULSE 69; RESP 20; TEMP 36.3; O2SAT 96
[2022-02-13 07:04] LABS: Hematocrit 31.5 % (37.0-47.0); Hemoglobin 10.6 g/dL (12.0-15.0); Mean Corpuscular HGB Conc 33.7 g/dl (32-36); Mean Corpuscular Hemoglobin 31.8 pg (26-34); Mean Corpuscular Volume 94.6 fl (80-100); Mean Platelet Volume 11.6 fl (7.4-10.4); Platelet Count Result 168 k/mm3 (150-375); Red Blood Count 3.33 M/mm3 (4.2-5.4); Red Cell Distribution Width 13.2 % (11.5-14.5); White Blood Count 9.4 K/mm3 (4.5-10.0)
--- NOTE | 2022-02-13 08:57 | WPDANESPN ---
Anes - Prog Note Post-Op Date/Time: 02/13/22 08:57 Cardiovascular status: normal Respiratory status: normal Airway patency: baseline Mental status: baseline Post-Op hydration status: normal Vital Signs: Last Vital Signs Temp 97.3 F L 02/13/22 05:54 Pulse 69 02/13/22 05:54 Resp 20 02/13/22 05:54 BP 109/74 02/13/22 05:54 Pulse Ox 96 02/13/22 05:54 O2 Del Method Room Air 02/12/22 20:54 O2 Flow Rate 8 02/12/22 16:33 Pain Score (VAS): 0 I/O: Intake & Output 02/12/22 02/13/22 02/13/22 23:59 07:59 15:59 Intake Total 2850 2250 50 Output Total 2200 Balance 2850 50 50 Laboratory Tests 02/13/22 06:33 02/12/22 09:38 02/12/22 02/12/22 02/12/22 09:38 09:38 09:49 WBC 13.5 H RBC 3.72 L Hgb 11.5 L Hct 34.4 L MCV 92.5 MCH 30.9 MCHC 33.4 RDW 12.8 Plt Count 179 MPV 10.9 H Immature Gran % (Auto) 1.5 H Neut % (Auto) 89.7 H Lymph % (Auto) 5.6 L [place] % (Auto) 3.1 Eos % (Auto) 0.0 Baso % (Auto) 0.1 L Lymph # (Auto) 0.75 L [place] # (Auto) 0.4 Eos # (Auto) 0.0 Baso # (Auto) 0.0 Abs Immat Gran (auto) 0.20 H Absolute Neuts (auto) 12.1 H Absolute Nucleated RBC 0.0 Nucleated RBC % 0.0 Platelet Estimate % Immature Plt Fraction Schistocytes PT INR Sodium 130 L Potassium 4.1 Chloride 100 Carbon Dioxide 24 Anion Gap 6 L BUN 11 D Creatinine 0.90 Estim Creat Clear Calc 72 Estimated GFR > 60 Glucose 161 H Calcium 8.5 Total Bilirubin 1.6 H AST 51 H ALT 56 H Alkaline Phosphatase 78 Total Protein 7.0 Albumin 3.9 Lipase 42 Urine Color Yellow Urine Appearance Clear Urine pH 5.5 Ur Specific [place] 1.025 Urine Protein 2+ H Urine Glucose (UA) Negative Urine Ketones 4+ H Ur Blood (Man) 2+ H Urine Nitrate Negative Urine Bilirubin 2+ H Urine Urobilinogen 1.0 Leukocyte Esterase Rfl Negative Urine RBC 6-10 H Urine WBC 0-3 Ur Squamous Epith Cells Occasional Urine Bacteria Trace Urine Mucus Rare Urine Test Blood Type Antibody Screen 02/12/22 02/12/22 02/12/22 12:26 15:11 15:11 WBC RBC Hgb Hct MCV MCH MCHC RDW Plt Count MPV Immature Gran % (Auto) Neut % (Auto) Lymph % (Auto) [place] % (Auto) Eos % (Auto) Baso % (Auto) Lymph # (Auto) [place] # (Auto) Eos # (Auto) Baso # (Auto) Abs Immat Gran (auto) Absolute Neuts (auto) Absolute Nucleated RBC Nucleated RBC % Platelet Estimate % Immature Plt Fraction Schistocytes PT 15.3 H INR 1.3 Sodium Potassium Chloride Carbon Dioxide Anion Gap BUN Creatinine Estim Creat Clear Calc Estimated GFR Glucose Calcium Total Bilirubin AST ALT Alkaline Phosphatase Total Protein Albumin Lipase Urine Color Urine Appearance Urine pH Ur Specific [place] Urine Protein Urine Glucose (UA) Urine Ketones Ur Blood (Man) Urine Nitrate Urine Bilirubin Urine Urobilinogen Leukocyte Esterase Rfl Urine RBC Urine WBC Ur Squamous Epith Cells Urine Bacteria Urine Mucus Urine Test Negative Blood Type A Positive Antibody Screen Negative 02/13/22 06:33 WBC 9.4 RBC 3.33 L Hgb 10.6 L Hct 31.5 L MCV 94.6 MCH 31.8 MCHC 33.7 RDW 13.2 Plt Count 168 MPV 11.6 H Immature Gran % (Auto) Not Reportable Neut % (Auto) Not Reportable Lymph % (Auto) Not Reportable [place] % (Auto) Not Reportable Eos % (Auto) Not Reportable Baso % (Auto) Not Reportable Lymph # (Auto) Not Reportable [place] # (Auto) Not Reportable Eos # (Auto) Not Reportable Baso # (Auto) Not Reportable Abs Immat Gran (auto) Not Reportable Absolute Neuts (auto) Not Reportable Absolute Nucleated RBC Not Reportable Nucleated RBC % Not Reportabl
[2022-02-13 10:48] LABS: Band Neutrophils Percent 5 % (0-6); Large Platelets Present; Lymphocytes Absolute Manual 1.12 K/mm3 (1.1-4.5); Monocytes Absolute Manual 0.28 K/mm3 (0.1-0.90); Monocytes Percent Manual 3 % (3-9); Neutrophils Absolute Manual 7.99 K/mm3 (1.7-7.2); Neutrophils Percent Manual 80 % (46-73); Platelet Estimate Adequate (Adequate); Schistocytes None Seen (NORMAL); Total Cells Counted 100
[2022-02-13 14:00] VITALS: BP 113/70; PULSE 70; RESP 16; TEMP 36.1; O2SAT 99
--- NOTE | 2022-02-13 16:37 | WPDUROPN2 ---
Progress Note: A&P Assessment and Plan (1) Right ureteral calculus: Code(s): N20.1 - Calculus of ureter Status: Acute Assessment and Plan: KUB will be done to determine if stone is visible and a lithotripsy can be done later this week, patient prefers Sunday if culture is negative. She is tolerating her stent well and will likely go home tomorrow after culture results are resulted and KUB is done. 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 Subjective Subjective Date/Time Seen: 02/13/22 16:37 POD #1 cystoscopy,? right ureteral stent placement 4.8 [place] contour Patient doing well, tolerating activity, diet and pain. Urine cultures are pending at this time. Post Op day: 1 Review of Systems Cardiovascular: Cardiovascular: Denies chest pain Respiratory: Respiratory: Reports no additional respiratory complaints Gastrointestinal: Gastrointestinal: Denies abdominal pain, Denies nausea and Denies vomiting Genitourinary: Genitourinary: Denies hematuria, Denies nocturia, Denies dysuria, Denies pelvic pain, Denies urinary hesitancy and Denies urinary urgency Exam Const: General: cooperative and comfortable Resp: Effort & Inspection: normal respiratory effort Cardio: Rate: regular rate GI: GI Palp: Yes Soft to palpation and No Tenderness to palpation present (GI) : General: Yes no CVA tenderness Extrem: Right lower extremity: no edema Left lower extremity: no edema Objective Data Vital Signs Vital Signs: Vital Signs - 24 hr 02/12/22 16:40 02/12/22 16:49 02/12/22 17:05 Temperature Pulse Rate 90 103 H Respiratory Rate 19 18 Blood Pressure 93/51 L 97/61 L Pulse Oximetry 95 97 Oxygen Delivery Room Air Room Air Room Air 02/12/22 17:20 02/12/22 17:25 02/12/22 17:55 Temperature Pulse Rate 92 96 88 Respiratory Rate 22 H 20 20 Blood Pressure 98/61 L 100/58 L 99/55 L Pulse Oximetry 100 Oxygen Delivery Room Air Room Air Room Air 02/12/22 18:25 02/12/22 18:55 02/12/22 19:25 Temperature Pulse Rate 93 85 81 Respiratory Rate 18 20 20 Blood Pressure 102/57 L 95/53 L 98/56 L Pulse Oximetry Oxygen Delivery Room Air Room Air Room Air 02/12/22 19:55 02/12/22 20:54 02/12/22 21:08 Temperature 97.6 F Pulse Rate 74 90 Respiratory Rate 20 20 Blood Pressure 100/52 L 107/65 Pulse Oximetry 98 Oxygen Delivery Room Air Room Air 02/13/22 05:54 02/13/22 14:00 Temperature 97.3 F L 97.0 F L Pulse Rate 69 70 Respiratory Rate 20 16 Blood Pressure 109/74 113/70 Pulse Oximetry 96 99 Oxygen Delivery Intake/Output Intake/Output: Intake & Output 02/10/22 02/11/22 02/12/22 02/13/22 23:59 23:59 23:59 23:59 Intake Total 2850 3880 Output Total 2200 Balance 2850 1680 Meds/Results Medications: Active Medications Generic Name Dose Route Start Last Admin Trade Name Freq PRN Reason Stop Dose Admin Hydrocodone Bitart/Acetaminophen 1 tab 02/12/22 21:39 02/13/22 11:07 Hydrocodone/Acetaminophen (*Crx) 5-325 Mg Tablet PO 1 tab Q4H PRN Administration Pain Rated 1-3 Hydrocodone Bitart/Acetaminophen 2 tab 02/12/22 21:39 Hydrocodone/Acetaminophen (*Crx) 5-325 Mg Tablet PO Q4H PRN Pain Rated 4-6 Dextrose/Lactated Ringer's 1,000 mls @ 125 mls/hr 02/12/22 20:10 02/13/22 15:24 Dextrose 5%/Lactated Ringers IV CONT 125 mls/hr .Q8H JOSÉ MIGUEL Administration Morphine Sulfate 1 mg 02/12/22 21:26 Morphine Sulfate (*Crx) 2 Mg/Ml Inj IV PUSH Q3H PRN pain 7-10 Naloxone HCl 0.1 mg 02/12/22 20:10 Naloxone Hcl 0.4 Mg/Ml Vial IV PUSH Q2M PRN Opiate Reversal Radiology Results: ITS Impressions Chest CT 02/12/22 13:01 IMPRESSION: 1. Small pleural effusions. 2. Partially visualized e
[2022-02-13 21:16] VITALS: BP 114/64; PULSE 85; RESP 20; TEMP 36.3; O2SAT 97
[2022-02-14 05:46] VITALS: BP 122/79; PULSE 80; RESP 18; TEMP 36.4; O2SAT 95
[2022-02-14] MEDS: DEXTROSE 5%/LACTATED RINGERS 1,000 ML 125 ML IV CONT ×3 (08:02→23:05)
[2022-02-14] MEDS: HYDROcodone/acetaminophen (*CRX) 5-325 MG TABLET 2 TAB PO ×4 (08:02→23:05)
[2022-02-14 09:22] LABS: Hematocrit 31.5 % (37.0-47.0); Hemoglobin 10.6 g/dL (12.0-15.0); Mean Corpuscular HGB Conc 33.7 g/dl (32-36); Mean Corpuscular Hemoglobin 31.3 pg (26-34); Mean Corpuscular Volume 92.9 fl (80-100); Mean Platelet Volume 10.3 fl (7.4-10.4); Platelet Count Result 225 k/mm3 (150-375); Red Blood Count 3.39 M/mm3 (4.2-5.4); Red Cell Distribution Width 13.4 % (11.5-14.5); White Blood Count 8.6 K/mm3 (4.5-10.0)
[2022-02-14 09:32] LABS: Anion Gap 5 mmol/L (8-16); Blood Urea Nitrogen 8 mg/dL (7-17); Calcium 8.1 mg/dL (8.4-10.2); Carbon Dioxide 25 mmol/L (22-30); Chloride 109 mmol/L (98-107); Estimated CRCL calculation 91 ml/min; Estimated Glomerular Filt Rate > 60; Glucose 136 mg/dL (65-110); Potassium 2.9 mmol/L (3.4-5.0); Sodium 139 mmol/L (137-145)
[2022-02-14] MEDS: MORPHINE SULFATE (*CRX) 2 MG/ML INJ 1 MG IV PUSH ×2 (12:35→16:03)
[2022-02-14] MEDS: HYOSCYAMINE SULFATE 0.125 MG TABLET PO ×2 (12:57→23:05)
[2022-02-14 13:42] VITALS: BP 122/75; PULSE 106; RESP 20; TEMP 37.1; O2SAT 94
--- NOTE | 2022-02-14 18:41 | WPDUROPN2 ---
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 Valle recommendation, d/t persistent pain, he recommends we add Ultram and we encourage her to try this for pain control as she shouldn't need Rueter x2 for pain control at this point. However, she states that the Rueter and Levsin don't last long and she is in pain quickly, if this occurs after switching to Rueter, he suggests placing a marquez for maximal drainage as she may be refluxing into the kidney causing pain. (2) Right ureteral calculus: Code(s): N20.1 - Calculus of ureter Status: Acute Assessment and Plan: She is tenatively scheduled for a right ESWL on Sunday at 0930, at [facility]. We will re-evaluate tomorrow and re-schedule her ESWL if not appropriate d/t her overall condition. We were planning to discharge home today, but not able to do so d/t a set back with pain and positive urine cultures. We will start Macrobid per Dr. Valle recommendation 100mg BID to treat her UTI growing Enterococcus. (3) Acute right flank pain: Code(s): R10.9 - Unspecified abdominal pain Status: Acute Subjective Subjective Date/Time Seen: 02/14/22 18:41 POD #2 Cysto, Right stent, right retrograde pyelogram. Patient is having pain today that is uncontrolled with Rueter 2 tablets and Levsin. Urine culture has resulted growing Enterococcus. Creatinine and WBC are stable. She is afebrile. Review of Systems Constitutional: Constitutional: Reports difficulty sleeping Cardiovascular: Cardiovascular: Denies chest pain Respiratory: Respiratory: Reports no additional respiratory complaints Gastrointestinal: Gastrointestinal: Reports abdominal pain, Denies nausea and Denies vomiting Genitourinary: Genitourinary: Denies dysuria, Denies pelvic pain, Reports flank pain and Denies urinary urgency Exam Const: General: cooperative and uncomfortable Resp: Effort & Inspection: normal respiratory effort Cardio: Rate: tachycardic GI: GI Palp: Yes Soft to palpation and No Tenderness to palpation present (GI) : General: Yes CVA tenderness on the right Extrem: Right lower extremity: no edema Left lower extremity: no edema Objective Data Vital Signs Vital Signs: Vital Signs - 24 hr 02/13/22 21:16 02/13/22 20:00 02/14/22 05:46 Temperature 97.4 F L 97.6 F Pulse Rate 85 80 Respiratory Rate 20 18 Blood Pressure 114/64 122/79 Pulse Oximetry 97 95 Oxygen Delivery Room Air 02/14/22 09:30 02/14/22 13:42 Temperature 98.8 F Pulse Rate 106 H Respiratory Rate 20 Blood Pressure 122/75 Pulse Oximetry 94 Oxygen Delivery Room Air Intake/Output Intake/Output: Intake & Output 02/11/22 02/12/22 02/13/22 02/14/22 23:59 23:59 23:59 23:59 Intake Total 2850 5120 4022 Output Total 3000 1350 Balance 2850 2120 6502 Meds/Results Medications: Active Medications Generic Name Dose Route Start Last Admin Trade Name Freq PRN Reason Stop Dose Admin Hydrocodone Bitart/Acetaminophen 1 tab 02/12/22 21:39 02/13/22 21:32 Hydrocodone/Acetaminophen (*Crx) 5-325 Mg Tablet PO 1 tab Q4H PRN Administration Pain Rated 1-3 Hydrocodone Bitart/Acetaminophen 2 tab 02/12/22 21:39 02/14/22 18:24 Hydrocodone/Acetaminophen (*Crx) 5-325 Mg Tablet PO 2 tab Q4H PRN Administration Pain Rated 4-6 Hyoscyamine 0.125 mg 02/14/22 12:32 02/14/22 12:57 Hyoscyamine Sulfate 0.125 Mg Tablet PO 0.125 mg Q4H PRN Administration Bladder Spasm Dextrose/Lactated Ringer's 1,000 mls @ 125 mls/hr 02/12/22 20:10 02/14/22 16:00 Dextrose 5%/Lactated Ringers IV CONT 125 mls/hr .Q8H JOSÉ MIGUEL Administration Morphine Sulfate 1 mg 02/12/22 21:26 02/14/22 16:03 Morphine Sulfate (*Crx) 2 Mg/Ml Inj IV PUSH 1 mg Q3H PRN Administration pain 7-10 Naloxone HCl 0.1 mg 02/12/22 20:10
[2022-02-14 22:00] VITALS: BP 110/58; PULSE 110; RESP 17; TEMP 36.9; O2SAT 95
[2022-02-14] MEDS: NITROFURANTOIN MONOHYD MACROCR 100 MG CAP PO (23:05)
[2022-02-15] MEDS: HYDROcodone/acetaminophen (*CRX) 5-325 MG TABLET 2 TAB PO ×2 (04:55→12:03)
[2022-02-15 06:00] VITALS: BP 111/57; PULSE 103; RESP 18; TEMP 37; O2SAT 96
[2022-02-15 06:45] LABS: Hematocrit 32.3 % (37.0-47.0); Mean Corpuscular HGB Conc 34.1 g/dl (32-36); Mean Corpuscular Hemoglobin 31.8 pg (26-34); Mean Corpuscular Volume 93.4 fl (80-100); Platelet Count Result 248 k/mm3 (150-375); Red Blood Count 3.46 M/mm3 (4.2-5.4); Red Cell Distribution Width 13.3 % (11.5-14.5); White Blood Count 12.8 K/mm3 (4.5-10.0)
[2022-02-15 07:02] LABS: Anion Gap 3 mmol/L (8-16); Blood Urea Nitrogen 5 mg/dL (7-17); Calcium 8.1 mg/dL (8.4-10.2); Carbon Dioxide 27 mmol/L (22-30); Chloride 101 mmol/L (98-107); Estimated CRCL calculation 105 ml/min; Estimated Glomerular Filt Rate > 60; Glucose 120 mg/dL (65-110); Potassium 3.3 mmol/L (3.4-5.0); Sodium 131 mmol/L (137-145)
[2022-02-15] MEDS: DEXTROSE 5%/LACTATED RINGERS 1,000 ML 125 ML IV CONT ×2 (07:02→16:30)
[2022-02-15] MEDS: NITROFURANTOIN MONOHYD MACROCR 100 MG CAP PO ×2 (08:47→21:18)
[2022-02-15] MEDS: MORPHINE SULFATE (*CRX) 2 MG/ML INJ 1 MG IV PUSH ×2 (08:55→21:41)
[2022-02-15 10:47] VITALS: O2SAT 96
[2022-02-15] MEDS: HYOSCYAMINE SULFATE 0.125 MG TABLET PO ×2 (12:03→21:18)
--- NOTE | 2022-02-15 13:09 | WPDUROPN2 ---
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 Plan to do a right ESWL with Dr. Grace tomorrow as she is on culture sensitive antibiotics, however she understands this will not relieve her pain immediately. Her CT doesn't show any worsening hydronephrosis or an explanation for worsening pain urologically. Catheter is in place for maximal drainage. NPO after midnight. Obtain consent: Right ESWL (3) Acute right flank pain: Code(s): R10.9 - Unspecified abdominal pain Status: Acute Assessment and Plan: Possibly related to fluid collection on her lungs and atelectasis. (4) Enterococcus UTI: Code(s): N39.0 - Urinary tract infection, site not specified; B95.2 - Enterococcus as the cause of diseases classified elsewhere Status: Acute Assessment and Plan: Continue Macrobid. (5) Atelectasis of right lung: Code(s): J98.11 - Atelectasis Status: Acute Assessment and Plan: Consult medicine to further evaluate and clear for ESWL tomorrow. Subjective Subjective Date/Time Seen: 02/15/22 13:09 POD #3 Cystoscopy, right ureteral stent, right retrograde pyelogram. Patient continues to have severe right flank pain and requires Morphine and [place] for pain control. Levsin is not helping her spasms. She had a marquez placed last night which we thought may help with possible reflux into the right kidney and she states it helped her pain slightly. However, Dr. Valle suggested getting a repeat CT scan to further evaluate her pain d/t and it shows: 1. Interval placement of a right internal ureteral stent in expected position with 7 mm stone adjacent to the proximal stent. 2. Persistent but decreased urinoma adjacent to the right kidney. 3. Small to moderate size right and small left pleural effusions with bibasilar atelectasis. Her urine culture was also positive growing Enterococcus, therefore she was started on oral Macrobid yesterday which was sensitive on her culture. . WBC did climb slightly to 12.8 today, but creatinine remains stable at 0.60. Post Op day: 3 Review of Systems Cardiovascular: Cardiovascular: Denies chest pain Respiratory: Respiratory: Reports no additional respiratory complaints Gastrointestinal: Gastrointestinal: Denies abdominal pain, Denies nausea and Denies vomiting Genitourinary: Genitourinary: Denies nocturia, Denies dysuria, Denies pelvic pain, Denies flank pain, Denies urinary incontinence and Denies urinary urgency Exam Const: General: cooperative; No comfortable Resp: Effort & Inspection: normal respiratory effort Cardio: Rate: regular rate GI: GI Palp: Yes Soft to palpation and Yes Tenderness to palpation present (GI) (RUQ) : General: Yes CVA tenderness on the right Urinary Catheter: Urinary Catheter: patent and draining and urine clear Extrem: Right lower extremity: no edema Left lower extremity: no edema Objective Data Vital Signs Vital Signs: Vital Signs - 24 hr 02/14/22 13:42 02/14/22 22:00 02/14/22 20:00 Temperature 98.8 F 98.5 F Pulse Rate 106 H 110 H Respiratory Rate 20 17 Blood Pressure 122/75 110/58 L Pulse Oximetry 94 95 Oxygen Delivery Room Air 02/15/22 06:00 02/15/22 10:47 Temperature 98.6 F Pulse Rate 103 H Respiratory Rate 18 Blood Pressure 111/57 L Pulse Oximetry 96 96 Oxygen Delivery Room Air Intake/Output Intake/Output: Intake & Output 02/12/22 02/13/22 02/14/22 02/15/22 23:59 23:59 23:59 23:59 Intake Total 2850 5120 5022 3340 Output Total 3000 1350 1500 Balance 2850 2120 3672 1840 Meds/Results Medications: Active Medications Generic Name Dose Route Start Last Admin Trade Name Freq PRN Reason St
[2022-02-15 14:00] VITALS: BP 109/64; PULSE 95; RESP 16; TEMP 36.4; O2SAT 97
[2022-02-15] MEDS: traMADol HCL (*CRX) 50 MG TABLET PO ×2 (16:37→21:18)
--- NOTE | 2022-02-15 20:24 | PM.IMCN ---
Assessment and Plan Assessment and plan (1) Right ureteral calculus: Code(s): N20.1 - Calculus of ureter Status: Acute Assessment and Plan: -the patient has a urinary stent already. -analgesics per Urology -per urology note the plan is for a ESWL tomorrow. (2) Enterococcus UTI: Code(s): N39.0 - Urinary tract infection, site not specified; B95.2 - Enterococcus as the cause of diseases classified elsewhere Status: Acute Assessment and Plan: -the patient was started on Macrobid per Urology -the patient had Enterococcus species in her urine culture which is covered by Macrobid (3) Atelectasis of right lung: Code(s): J98.11 - Atelectasis Status: Acute Assessment and Plan: -the patient was strongly encouraged to move around and to use her incentive spirometer. -she was encouraged to take deep breaths and cough. --IV fluids were slowed down as the patient has small amount of bilateral pleural effusion. After procedure tomorrow I would recommend that the patient have her IV fluids stopped. HPI Data of Consult Consult date: 02/15/22 Requesting Physician: Jan Valle MD Primary Care Provider: Deejay Cheek, Consult Narrative Narrative: Abeba Stacy is a 46 year old female who came into the emergency room on 02/12/2022 with complaints of abdominal pain. The patient was found to have an obstructing 7 mm right proximal ureteral calculus with calcis still rupture and urinoma. On 02/12/2022 the patient was taken for cystoscopy right ureteral stent placement. The patient is still complaining of having right flank pain. Ultram was added to her medication. The patient is scheduled for in ESWL. The patient was also started on Macrobid for Enterococcus positive urine culture. Today her white counts 12.8. H&H is 11.0 and 32.3. Her potassium was low at 3.3. Abdominal pelvis CT read from today was read as the following 1. Interval placement of a right internal ureteral stent in expected position with 7 mm stone adjacent to the proximal stent. 2. Persistent but decreased urinoma adjacent to the right kidney. 3. Small to moderate size right and small left pleural effusions with bibasilar atelectasis. The patient was admitted to inpatient in the hospitalist group was asked to consult on the patient. Review of Systems Review of Systems: See HPI All systems reviewed & are unremarkable except as noted in HPI and below Constitutional: Constitutional: Reports as per HPI and Reports no additional constitutional complaints Eyes: Eyes: Reports as per HPI and Reports no additional eye complaints ENT: Reports system reviewed and no additional complaints, except as documented and Reports Normal hearing present Cardiovascular: Cardiovascular: Reports no additional cardiovascular complaints Respiratory: Respiratory: Reports no additional respiratory complaints and Reports no additional respiratory complaints Gastrointestinal: Gastrointestinal: Reports as per HPI and Reports no additional gastrointestinal complaints Musculoskeletal: Musculoskeletal: Reports no additional musculoskeletal complaints Integumentary/Breasts: Skin/Breast: Reports system reviewed and no additional complaints, except as docu and Reports as per HPI Neurologic: Reports system reviewed and no additional complaints, except as documented, Reports as per HPI and Reports Normal hearing present Psychiatric: Psychiatric: Reports no additional psychiatric complaints and Reports as per HPI Endocrine: Endocrine: Reports no additional endocrine complaints Hematologic/Lymphatic: Hematologic/Lymphatic: Reports no additional hematologic/lymphatic complaints Allergic/Immunologic: Allergic/Immunologic: Reports no additional allergic/immunologic complaints [facility] Past Medical History Medical History AK (actinic keratosis) Surgical History Surgical History
[2022-02-15 22:00] VITALS: BP 112/71; PULSE 100; RESP 18; TEMP 36.9; O2SAT 93
[2022-02-16] VITALS (8 sets, daily range): BP systolic 100–122; BP diastolic 63–78; PULSE 74–111; RESP 16–19; TEMP 36.4–37.2; O2SAT 91–99
[2022-02-16] MEDS: MORPHINE SULFATE (*CRX) 2 MG/ML INJ 1 MG IV PUSH ×2 (05:34→08:59)
[2022-02-16] MEDS: DEXTROSE 5%/LACTATED RINGERS 1,000 ML 75 ML IV CONT (06:56)
[2022-02-16 07:43] LABS: Basophils Absolute Auto 0.1 K/mm3 (0.0-0.1); Basophils Percent Auto 0.4 % (0.2-1.2); Eosinophils Absolute Auto 0.2 K/mm3 (0-0.3); Eosinophils Percent Auto 1.2 % (0-4.4); Immature Granulocyte Absolute 0.31 K/mm3 (0.00-0.031); Immature Granulocyte Percent A 1.9 % (0-0.5); Lymphocytes Absolute Auto 2.01 K/mm3 (0.9-3.2); Lymphocytes Percent Auto 12.5 % (18.3-44.2); Mean Corpuscular HGB Conc 33.3 g/dl (32-36); Mean Platelet Volume 10.3 fl (7.4-10.4); Monocytes Absolute Auto 1.2 K/mm3 (0.1-0.6); Monocytes Percent Auto 7.5 % (2.6-8.5); Neutrophils Absolute Auto 12.3 K/mm3 (1.3-6.7); Neutrophils Percent Auto 76.5 % (45.5-73.1); Platelet Count Result 288 k/mm3 (150-375); Red Blood Count 3.55 M/mm3 (4.2-5.4); Red Cell Distribution Width 13.2 % (11.5-14.5); White Blood Count 16.1 K/mm3 (4.5-10.0)
[2022-02-16 08:01] LABS: Alanine Aminotransferase 78 U/L (6-35); Alkaline Phosphatase 169 U/L (38-126); Anion Gap 3 mmol/L (8-16); Aspartate Amino Transferase 59 U/L (14-36); Bilirubin,Total 0.8 mg/dL (0.2-1.3); Blood Urea Nitrogen 6 mg/dL (7-17); Calcium 8.2 mg/dL (8.4-10.2); Carbon Dioxide 26 mmol/L (22-30); Chloride 99 mmol/L (98-107); Estimated CRCL calculation 91 ml/min; Estimated Glomerular Filt Rate > 60; Glucose 110 mg/dL (65-110); Magnesium 1.7 mg/dL (1.6-2.3); Potassium 3.6 mmol/L (3.4-5.0); Sodium 128 mmol/L (137-145)
[2022-02-16] MEDS: HYOSCYAMINE SULFATE 0.125 MG TABLET PO ×2 (08:58→17:55)
[2022-02-16] MEDS: NITROFURANTOIN MONOHYD MACROCR 100 MG CAP PO (08:59)
--- NOTE | 2022-02-16 09:41 | WPDHPUPDATE1 ---
History and Physical Update Update Date/Time: 02/16/22 09:41 History and Physical has been reviewed, including an updated exam of the patient. There are NO changes in the patient's condition. Risks, benefits, and alternatives have been discussed and questions answered. Patient agrees to proceed with procedure. Patient afebrile overnight. Mild atelectasis should not preclude her ability to do ESWL today. Discussed this with patient and she is willing, anxious, to proceed with right ESWL.
--- NOTE | 2022-02-16 13:13 | PM.IMPN ---
Progress Note: A&P Assessment and Plan (1) Right ureteral calculus: Code(s): N20.1 - Calculus of ureter Status: Acute Assessment and Plan: Urology following - planned ESWL today. Ureteral stent is in place. - Appreciate urology recs. (2) Enterococcus UTI: Code(s): N39.0 - Urinary tract infection, site not specified; B95.2 - Enterococcus as the cause of diseases classified elsewhere Status: Acute Assessment and Plan: Complicated urinary tract infection. - Enterococcus sensitive to macrobid. - With persistent pain and further elevation of wbc count, consider macrobid failure d/t lack of renal penetration. Discussed with ID in light of pcn allergy; reccommendation received for zyvox. I have discussed with urology. - Procalcitonin ordered for tomorrow am - consider trending. (3) Transaminitis: Code(s): R74.01 - Elevation of levels of liver transaminase levels Status: Acute Assessment and Plan: Likely 2/2 acute illness. New onset with normal enzymes one week prior. - Trend enzymes. (4) Hyponatremia: Code(s): E87.1 - Hypo-osmolality and hyponatremia Status: Acute Assessment and Plan: Patient on D5LR which will be discontinued after procedure. One liter nacl overnight. If not improving consider free water restriction. Repeat labs in the am. (5) Acute right flank pain: Code(s): R10.9 - Unspecified abdominal pain Status: Acute Plan ESWL planned for today. Expect 48-72 hours of continued treatment. Time Spent With Patient Time with patient: 25 - 35 minutes Subjective Date/time seen: 02/16/22 13:13 Interval history: Abeba states her pain is continuing to persist. The pain medications are taking the edge off but not giving full relief. She states awareness of her plan of care for procedure today. Review of Systems Review of Systems: All systems reviewed & are unremarkable except as noted in HPI and below Constitutional: Constitutional: Reports no additional constitutional complaints Cardiovascular: Cardiovascular: Reports no additional cardiovascular complaints Respiratory: Respiratory: Reports no additional respiratory complaints Gastrointestinal: Gastrointestinal: Reports no additional gastrointestinal complaints Exam Narrative: GENERAL APPEARANCE: Appears to be in no acute distress. HEAD: normocephalic atraumatic EYES: PERRL, EOMI. Vision grossly intact. ENT: Hearing grossly intact, no nasal discharge NECK: Neck supple, trachea midline. CARDIAC: Normal S1/S2. Rhythm is regular. No murmurs, rubs, or gallops. No cyanosis or pallor. Extremities are warm and well perfused. LUNGS: Clear to auscultation without rales, rhonchi, wheezing or diminished breath sounds. Respirations even and unlabored. ABDOMEN: BS positive x 4 quadrants. Soft, nondistended, nontender. No guarding or rebound. MSK: No joint tenderness/swelling, fair strength in all extremities. PERIPHERAL VASCULAR: Peripheral pulses palpable. Normal perfusion, cap refill <2 seconds. No edema. NEURO: Follows commands. No focal deficits. SKIN: [place] without lesions or eruptions. PSYCH: Stable, no paranoia or delusional thinking. Objective Data Vital Signs Vital Signs: Vital Signs - 24 hr 02/15/22 14:00 02/15/22 22:00 02/15/22 20:00 Temperature 97.6 F 98.4 F Pulse Rate 95 100 Respiratory Rate 16 18 Blood Pressure 109/64 112/71 Pulse Oximetry 97 93 Oxygen Delivery Room Air 02/16/22 06:00 Temperature 97.6 F Pulse Rate 111 H Respiratory Rate 16 Blood Pressure 112/69 Pulse Oximetry 94 Oxygen Delivery Intake/Output Intake/Output: Intake & Output 02/13/22 02/14/22 02/15/22 02/16/22 23:59 23:59 23:59 23:59 Intake Total 5120 5022 5920 1400 Output Total 3000 1350 3350 4900 Balance 2120 3672 2570 -3500 Meds/Results Medications: Active Medications Generic Name Dose Route Start Last Admin Trade Name Freq PRN Reason Stop Dose Admin Hydroc
[2022-02-16] MEDS: LACTATED RINGERS 1,000 ML 30 ML IV CONT (13:30)
--- NOTE | 2022-02-16 13:35 | WPDANESEPPF ---
Anes - Initial Pre Proc Eval Procedure: Operation Date: 02/12/22 15:45 Proposed Procedures p Cysto, RPG, Stone Ext, Stent Placement - Jan Valle MD Operation Date: 02/16/22 14:00 Proposed Procedures p Right Extracorporeal Shock Wave Lithotripsy - Ashish Grace MD Date/Time: 02/16/22 13:35 Surgeon: Jan Valle MD Pre Op Diagnosis: Kidney Stone Patient Data Age: 46 Gender: F Height: 1.75 m Weight: 84.2 kg Last Vital Signs Temp 37.2 C 02/16/22 13:23 Pulse 91 02/16/22 13:23 Resp 16 02/16/22 13:23 BP 122/78 02/16/22 13:23 Pulse Ox 97 02/16/22 13:23 O2 Del Method Room Air 02/16/22 13:23 O2 Flow Rate 8 02/12/22 16:33 Allergies Allergy/AdvReac Type Severity Reaction Status Date / Time Penicillins Allergy Unknown Rash Verified 02/12/22 22:07 levofloxacin [From Levaquin] AdvReac Severe Rash Verified 02/12/22 22:07 Home Medications Medication Instructions Recorded Confirmed Type No Home Medications 02/13/22 02/13/22 History Laboratory Tests 02/16/22 02/16/22 02/16/22 06:37 06:37 06:37 WBC 16.1 K/mm3 H K/mm3 (4.5-10.0) RBC 3.55 M/mm3 L M/mm3 (4.2-5.4) Hgb 11.0 g/dL L g/dL (12.0-15.0) Hct 33.0 % L % (37.0-47.0) MCV 93.0 fl fl (80-100) MCH 31.0 pg pg (26-34) MCHC 33.3 g/dl g/dl (32-36) RDW 13.2 % % (11.5-14.5) Plt Count 288 k/mm3 k/mm3 (150-375) MPV 10.3 fl fl (7.4-10.4) Immature Gran % (Auto) 1.9 % H % (0-0.5) Neut % (Auto) 76.5 % H % (45.5-73.1) Lymph % (Auto) 12.5 % L % (18.3-44.2) Wells % (Auto) 7.5 % % (2.6-8.5) Eos % (Auto) 1.2 % % (0-4.4) Baso % (Auto) 0.4 % % (0.2-1.2) Lymph # (Auto) 2.01 K/mm3 K/mm3 (0.9-3.2) Wells # (Auto) 1.2 K/mm3 H K/mm3 (0.1-0.6) Eos # (Auto) 0.2 K/mm3 K/mm3 (0-0.3) Baso # (Auto) 0.1 K/mm3 K/mm3 (0.0-0.1) Abs Immat Gran (auto) 0.31 K/mm3 H K/mm3 (0.00-0.031) Absolute Neuts (auto) 12.3 K/mm3 H K/mm3 (1.3-6.7) Absolute Nucleated RBC 0.0 K/mm3 K/mm3 (0.0-0.012) Nucleated RBC % 0.0 % % (0.0-0.2) Sodium 128 mmol/L L mmol/L (137-145) Potassium 3.6 mmol/L mmol/L (3.4-5.0) Chloride 99 mmol/L mmol/L (98-107) Carbon Dioxide 26 mmol/L mmol/L (22-30) Anion Gap 3 mmol/L L mmol/L (8-16) BUN 6 mg/dL L mg/dL (7-17) Creatinine 0.70 mg/dL mg/dL (0.7-1.0) Estim Creat Clear Calc 91 ml/min ml/min Estimated GFR > 60 (59 - ) Glucose 110 mg/dL mg/dL (65-110) Lactic Acid 1.0 mmol/L mmol/L (0.7-2.0) Calcium 8.2 mg/dL L mg/dL (8.4-10.2) Magnesium 1.7 mg/dL mg/dL (1.6-2.3) Total Bilirubin 0.8 mg/dL mg/dL (0.2-1.3) AST 59 U/L H U/L (14-36) ALT 78 U/L H U/L (6-35) Alkaline Phosphatase 169 U/L H U/L (38-126) Total Protein 6.0 g/dL L g/dL (6.3-8.2) Albumin 3.0 g/dL L g/dL (3.5-5.1) Patient hx anesthesia problems: none Family hx anesthesia problems: none Results Review: All pre-operative results and documents have been reviewed as part of the pre-operative evaluation. [facility] Past Medical History Medical History (Updated 02/16/22 @ 13:31 by Tarun Tamez APRN) AK (actinic keratosis) Surgical History Surgical History (Updated 02/15/22 @ 20:34 by Narcisa Bear NP) H/O cystoscopy S/P ureteral stent placement Family History Family History (Updated 02/15/22 @ 20:35 by Narcisa Bear NP) Father Kidney stone Sibling Brain cancer Brother Lung cancer Sister Skin cancer Brother Social History Social History (Updated 02/15/22 @ 20:36 by Narcisa Bear NP) Social History: The patient lives wi
[2022-02-16] MEDS: ceFAZolin 2 GM/D5W 50 ML 2 GM/50 ML BAG IVPB (14:53)
--- NOTE | 2022-02-16 15:42 | W.PM.PROC2 ---
Procedure Note - Detailed Date of Procedure 02/16/22 Pre-op Diagnosis Right ureteral stone Post-op Diagnosis Same Procedure Performed Right ESWL Surgeon Ashish Grace MD Anesthesia General Description of Procedure The patient was brought to the operative suite where she was placed in the supine position on the Dornier lithotripsy table. The focal point of the lithotripter was placed at a 7-8mm right proximal ureteral calculus. A total of 3000 shocks were delivered at a power setting of 4-5 (briefly at 5). There appeared to be good fragmentation of the stone. The patient tolerated the procedure well and was taken to the recovery room in good condition. Estimated Blood Loss 0 Urine Output 1,350 Drains No Packing No Pathology None sent Complications No immediate complications
[2022-02-16] MEDS: traMADol HCL (*CRX) 50 MG TABLET PO (17:55)
[2022-02-16] MEDS: LINEZOLID 600 MG TABLET PO (17:55)
[2022-02-16] MEDS: SODIUM CHLORIDE 0.9% IV 1,000 ML 75 ML IV CONT (17:59)
--- NOTE | 2022-02-16 23:53 | PC.NURSE ---
Pt independent in room. Pt has no complaints of pain and even states is feels better when she sits up than it did before. She expresses no needs at this time. Pt participated and contributed in plan of care. Will continue to monitor pt.
[2022-02-17 06:00] VITALS: BP 123/79; PULSE 84; RESP 18; TEMP 35.8; O2SAT 97
[2022-02-17] MEDS: LINEZOLID 600 MG TABLET PO (06:18)
[2022-02-17 06:56] LABS: Hematocrit 33.2 % (37.0-47.0); Hemoglobin 11.3 g/dL (12.0-15.0); Mean Corpuscular Hemoglobin 31.4 pg (26-34); Mean Corpuscular Volume 92.2 fl (80-100); Mean Platelet Volume 9.8 fl (7.4-10.4); Platelet Count Result 332 k/mm3 (150-375); Red Cell Distribution Width 13.2 % (11.5-14.5); White Blood Count 13.3 K/mm3 (4.5-10.0)
[2022-02-17 07:21] LABS: Alanine Aminotransferase 59 U/L (6-35); Albumin Level 3.2 g/dL (3.5-5.1); Alkaline Phosphatase 184 U/L (38-126); Anion Gap 5 mmol/L (8-16); Aspartate Amino Transferase 34 U/L (14-36); Bilirubin,Total 0.6 mg/dL (0.2-1.3); Blood Urea Nitrogen 7 mg/dL (7-17); Calcium 8.4 mg/dL (8.4-10.2); Carbon Dioxide 26 mmol/L (22-30); Chloride 107 mmol/L (98-107); Estimated CRCL calculation 105 ml/min; Estimated Glomerular Filt Rate > 60; Glucose 133 mg/dL (65-110); Sodium 138 mmol/L (137-145)
[2022-02-17 07:56] LABS: Procalcitonin 0.1 ng/mL
--- NOTE | 2022-02-17 08:21 | WPDUROPN2 ---
Progress Note: A&P Assessment and Plan (1) Right ureteral calculus: Code(s): N20.1 - Calculus of ureter Status: Acute Assessment and Plan: Feeling much better after right ESWL. Home today on Macrobid with follow-up in 1 week for possible stent removal Subjective Subjective Date/Time Seen: 02/17/22 08:21 Comfortable, much improved following ESWL Review of Systems Cardiovascular: Cardiovascular: Denies chest pain, Denies lightheadedness, Denies palpitations and Denies dyspnea Respiratory: Respiratory: Denies dyspnea Gastrointestinal: Gastrointestinal: Denies diarrhea, Denies nausea and Denies vomiting Genitourinary: Genitourinary: Denies hematuria and Denies dysuria Endocrine: Endocrine: Denies palpitations Exam Const: General: no acute distress Resp: Effort & Inspection: normal respiratory effort GI: Inspection: non-distended GI Palp: No abdominal tenderness and No Guarding due to palpation present (GI) Auscultation: normal bowel sounds Objective Data Vital Signs Vital Signs: Vital Signs - 24 hr 02/16/22 13:23 02/16/22 15:48 02/16/22 16:00 Temperature 99 F 98.7 F Pulse Rate 91 101 H 81 Respiratory Rate 16 18 18 Blood Pressure 122/78 100/63 106/72 Pulse Oximetry 97 97 99 Oxygen Delivery Room Air Simple Face Mask Simple Face Mask Oxygen Flow Rate 6 6 02/16/22 16:15 02/16/22 16:30 02/16/22 16:45 Temperature Pulse Rate 82 84 82 Respiratory Rate 16 18 19 Blood Pressure 114/67 112/70 100/67 Pulse Oximetry 92 93 91 Oxygen Delivery Room Air Room Air Room Air Oxygen Flow Rate 02/16/22 17:00 02/16/22 20:17 02/17/22 06:00 Temperature 96.5 F L Pulse Rate 74 84 Respiratory Rate 19 18 Blood Pressure 108/69 123/79 Pulse Oximetry 93 97 Oxygen Delivery Room Air Room Air Oxygen Flow Rate Intake/Output Intake/Output: Intake & Output 02/14/22 02/15/22 02/16/22 02/17/22 23:59 23:59 23:59 23:59 Intake Total 5022 5920 2340 Output Total 1350 3355 9038 1550 Balance 3671 9745 -5839 -9851 Meds/Results Medications: Active Medications Generic Name Dose Route Start Last Admin Trade Name Freq PRN Reason Stop Dose Admin Hydrocodone Bitart/Acetaminophen 1 tab 02/12/22 21:39 02/13/22 21:32 Hydrocodone/Acetaminophen (*Crx) 5-325 Mg Tablet PO 1 tab Q4H PRN Administration Pain Rated 1-3 Hydrocodone Bitart/Acetaminophen 2 tab 02/12/22 21:39 02/15/22 12:03 Hydrocodone/Acetaminophen (*Crx) 5-325 Mg Tablet PO 2 tab Q4H PRN Administration pain not relieved by tramadol Albuterol 2 puff 02/15/22 20:41 Albuterol Sulfate (*Sp) Aerosol 1 Puff INHALATION Q6HRT PRN Shortness Of Breath Fentanyl Citrate 25 mcg 02/16/22 13:34 Fentanyl Citrate Inj (*Crx) 100 Mcg/2 Ml Vial IV PUSH Q2M PRN Pain Hyoscyamine 0.125 mg 02/14/22 12:32 02/16/22 17:55 Hyoscyamine Sulfate 0.125 Mg Tablet PO 0.125 mg Q4H PRN Administration Bladder Spasm Linezolid 600 mg 02/16/22 18:00 02/17/22 06:18 Linezolid 600 Mg Tablet PO 600 mg Q12H JOSÉ MIGUEL Administration Morphine Sulfate 1 mg 02/12/22 21:26 02/16/22 08:59 Morphine Sulfate (*Crx) 2 Mg/Ml Inj IV PUSH 1 mg Q3H PRN Administration pain 7-10 Naloxone HCl 0.1 mg 02/12/22 20:10 Naloxone Hcl 0.4 Mg/Ml Vial IV PUSH Q2M PRN Opiate Reversal Ondansetron HCl 4 mg 02/16/22 13:34 Ondansetron Inj 4 Mg/2 Ml Vial IV PUSH ONCE PRN Nausea Oxycodone HCl 5 mg 02/16/22 13:34 Oxycodone Hcl (*Crx) 5 Mg Tab Ir PO ONCE PRN Pain Potassium Chloride 10 meq 02/16/22 08:00 02/16/22 08:00 Potassium Chloride 10 Meq Tablet.Er PO Not Given DAILY@0800 JOSÉ MIGUEL Tramadol HCl 50 mg 02/14/22 18:49 02/16/22 17:55 Tramadol Hcl (*Crx) 50 Mg Tablet PO 50 mg Q4H PRN Administration Pain Rated 4-6 Radiology Results: ITS Impressions Chest CT 02/12/22 13:01 IMPRESSION: 1. Small pleural effusions.
--- NOTE | 2022-02-17 08:23 | PM.DS ---
DS: Admitting Diagnosis Discharge Date 02/17/2022 Admitting Diagnosis Right ureteral stone Urinary tract infection DS: Discharge Diagnosis Discharge Diagnosis (1) Right ureteral calculus: Code(s): N20.1 - Calculus of ureter Status: Acute DS: Summary Hospital Course Hospital Course: Patient was admitted through the ER with a painful right proximal ureteral stone. She underwent cystoscopy with ureteral stent placement. She was found to have a urinary tract infection that was managed with culture specific antibiotics. She continued to have intractable pain from her stone, precluding discharge with the indwelling stent. During the course of this admission she underwent right ESWL with apparent good fragmentation of the stone. The following day she was comfortable, afebrile under decision was made to discharge at that point. Time Spent with Patient Time attestation: Total time spent providing and/or coordinating discharge services: Exam Const: General: no acute distress Resp: Effort & Inspection: normal respiratory effort GI: Inspection: non-distended GI Palp: No abdominal tenderness and No Guarding due to palpation present (GI) Auscultation: normal bowel sounds DS: Data Data Completed and Pending Labs on day of discharge: Labs from last 24 hours 02/17/22 02/17/22 02/17/22 06:41 06:41 06:41 WBC 13.3 H RBC 3.60 L Hgb 11.3 L Hct 33.2 L MCV 92.2 MCH 31.4 MCHC 34.0 RDW 13.2 Plt Count 332 MPV 9.8 Sodium 138 Potassium 4.0 Chloride 107 Carbon Dioxide 26 Anion Gap 5 L BUN 7 Creatinine 0.60 L Estim Creat Clear Calc 105 Estimated GFR > 60 Glucose 133 H Calcium 8.4 Total Bilirubin 0.6 AST 34 ALT 59 H Alkaline Phosphatase 184 H Total Protein 7.0 Albumin 3.2 L Procalcitonin 0.1 Discharge Plan Discharge Attending physician on discharge: Jan Valle Consulting providers: Tarun Tamez ; Sy Lora Discharging Clinician: Ashish Grace Patient Disposition: Home, Self-Care Activity: other - see discharge instructions Diet: other - see discharge instructions Discharge Instructions: 1) Activity: no driving or important decisions x24 hours. 2) Diet: resume your normal, pre-admission diet. 3) Follow-up: 1-2 weeks for stent removal / call for appointment ([phone]). Patient Instructions: Antibiotic Form, Ureteral Stent Placement (DC) Stand Alone Forms: General Discharge Instructions Follow-up/Referrals: Elbert*,Deejay Purcell MD [Primary Care Provider] - Discharge Medications: New hydrocodone-acetaminophen 5-325 mg tablet 1 - 2 tablet PO Q6H PRN (Reason: pain) Qty: 20 0RF nitrofurantoin monohyd/m-cryst [Macrobid] 100 mg capsule 100 mg PO Q12H 7 Days Qty: 20 0RF Rx Instructions: must administer with a meal/food Date of admission: 02/15/22 15:17 Primary Care Provider: Deejay Cheatham Admitting Provider: Jan Valle Attending physician on admission: Jan Valle Condition: Serious
[2022-02-17] MEDS: POTASSIUM CHLORIDE 10 MEQ TABLET.ER PO (09:06)
--- NOTE | 2022-02-17 10:21 | WPDANESPN ---
Anes - Prog Note Post-Op Date/Time: 02/17/22 10:21 Cardiovascular status: normal Respiratory status: normal Airway patency: baseline Mental status: baseline Post-Op hydration status: normal Vital Signs: Last Vital Signs Temp 35.8 C L 02/17/22 06:00 Pulse 84 02/17/22 06:00 Resp 18 02/17/22 06:00 BP 123/79 02/17/22 06:00 Pulse Ox 97 02/17/22 06:00 O2 Del Method Room Air 02/16/22 20:17 O2 Flow Rate 6 02/16/22 16:00 Pain Score (VAS): 0 I/O: Intake & Output 02/16/22 02/17/22 02/17/22 23:59 07:59 15:59 Intake Total 390 Output Total 250 1550 Balance 140 -1550 Laboratory Tests 02/17/22 06:41 02/17/22 06:41 02/17/22 02/17/22 02/17/22 06:41 06:41 06:41 WBC 13.3 H RBC 3.60 L Hgb 11.3 L Hct 33.2 L MCV 92.2 MCH 31.4 MCHC 34.0 RDW 13.2 Plt Count 332 MPV 9.8 Sodium 138 Potassium 4.0 Chloride 107 Carbon Dioxide 26 Anion Gap 5 L BUN 7 Creatinine 0.60 L Estim Creat Clear Calc 105 Estimated GFR > 60 Glucose 133 H Calcium 8.4 Total Bilirubin 0.6 AST 34 ALT 59 H Alkaline Phosphatase 184 H Total Protein 7.0 Albumin 3.2 L Procalcitonin 0.1 Post-procedural complaints: none Patient Feedback: Patient satisfied with anesthetic care.
--- NOTE | 2022-02-17 11:15 | PM.DS ---
DS: Admitting Diagnosis Discharge Date 02/17/2022 Admitting Diagnosis Right ureter calculus DS: Discharge Diagnosis Discharge Diagnosis (1) Right ureteral calculus: Code(s): N20.1 - Calculus of ureter Status: Acute Assessment and Plan: Urology following - planned ESWL today. Ureteral stent is in place. - Appreciate urology recs. (2) Enterococcus UTI: Code(s): N39.0 - Urinary tract infection, site not specified; B95.2 - Enterococcus as the cause of diseases classified elsewhere Status: Acute Assessment and Plan: Complicated urinary tract infection. - Enterococcus sensitive to macrobid. - With persistent pain and further elevation of wbc count, consider macrobid failure d/t lack of renal penetration. Discussed with ID in light of pcn allergy; reccommendation received for zyvox. I have discussed with urology. - Procalcitonin ordered for tomorrow am - consider trending. (3) Transaminitis: Code(s): R74.01 - Elevation of levels of liver transaminase levels Status: Acute Assessment and Plan: Likely 2/2 acute illness. New onset with normal enzymes one week prior. - Trend enzymes. (4) Hyponatremia: Code(s): E87.1 - Hypo-osmolality and hyponatremia Status: Acute Assessment and Plan: Patient on D5LR which will be discontinued after procedure. One liter nacl overnight. If not improving consider free water restriction. Repeat labs in the am. (5) Acute right flank pain: Code(s): R10.9 - Unspecified abdominal pain Status: Acute Plan ESWL planned for today. Expect 48-72 hours of continued treatment. DS: Summary Hospital Course Reason for hospitalization: right ureter calculus Hospital Course: 46 years old female was admitted complains of having right flank pain. Patient was found to have right ureter calculus. Patient also have UTI. Patient was given IV antibiotics and Urology consulted. patient became pain free after treatment. To today patient was discharged home stable condition. Follow-up with urology as scheduled outpatient. Liver function tests will be repeated as an outpatient. Status at Discharge Cognitive/behavioral status at discharge: Stable Time Spent with Patient Time attestation: Total time spent providing and/or coordinating discharge services: Exam Narrative: GENERAL APPEARANCE: Appears to be in no acute distress. HEAD: normocephalic atraumatic EYES: PERRL, EOMI. Vision grossly intact. ENT: Hearing grossly intact, no nasal discharge NECK: Neck supple, trachea midline. CARDIAC: Normal S1/S2. Rhythm is regular. No murmurs, rubs, or gallops. No cyanosis or pallor. Extremities are warm and well perfused. LUNGS: Clear to auscultation without rales, rhonchi, wheezing or diminished breath sounds. Respirations even and unlabored. ABDOMEN: BS positive x 4 quadrants. Soft, nondistended, nontender. No guarding or rebound. MSK: No joint tenderness/swelling, fair strength in all extremities. PERIPHERAL VASCULAR: Peripheral pulses palpable. Normal perfusion, cap refill <2 seconds. No edema. NEURO: Follows commands. No focal deficits. SKIN: [place] without lesions or eruptions. PSYCH: Stable, no paranoia or delusional thinking. Const: General: cooperative, healthy appearing, comfortable, no acute distress, well developed, awake, Physically active, average body habitus and well nourished Nutritional Appearance: average body habitus and well nourished Orientation/consciousness: oriented to person, oriented to place, oriented to time and patient oriented x3 Limitations: no limitations HENMT: Head: normal to inspection, No palpable skull fracture present, normocephalic and atraumatic Ears: hearing grossly normal bilaterally and external ears normal Face/Nose/Sinus: Normal external nose present and Normal nares present Eyes: General: appearance normal, both eyes and all related structures Alignment and Position: alignment normal Perior
== END 2022-02-17 13:00 | disposition home or self-care (01) | DRG 660 ==
LOC: ANHED 14:55 → ANHSURGERY 14:57 → ANH3MEDSUR 21:30
PROVIDERS: Nurse Practitioner; Nurse Practitioner Adult Health; Nurse Practitioner Family; Urology; Admitting Provider Urology; Emergency Provider Preventive Medicine Aerospace Medicine; PCP Internal Medicine; Visit Provider Urology
PROC: 0T768DZ Dilation of Right Ureter with Intraluminal Device, Via Natural or Artificial Opening Endoscopic (ICD-10-PCS; CPT 52352; principal; 2022-02-12 15:45)
PROC: 0TF6XZZ Fragmentation in Right Ureter, External Approach (ICD-10-PCS; CPT 50590; principal; 2022-02-16 14:00)
DX: N13.6 Pyonephrosis (principal); E87.1 Hypo-osmolality and hyponatremia; J98.11 Atelectasis; N28.89 Other specified disorders of kidney and ureter; B95.2 Enterococcus as the cause of diseases classified elsewhere; R74.01 Elevation of levels of liver transaminase levels
CPT/HCPCS: 36415; 71260; 74018; 74176; 74178; 74420; 80048; 80053; 81001; 81025; 83605; 83690; 83735; 84145; 85025; 85027; 85055; 85610; 86850; 86900; 86901; 87077; 87086; 87088; 87186; 96361; 96374; 96375; 99285; A9270; C1758; C1769; C2617; G0378; J0131; J0690; J1100; J1885; J2250; J2270; J2405; J2704; J3010; J7030; J7120; J7121; Q9967

== ENCOUNTER → 2022-02-24 11:17 | Outpatient (CLI) | payer BC, SELFPAY ==
--- NOTE | ~2022-02-24 | XR_ITS ---
Supine and upright views of the abdomen Clinical history: Right ureteral stone COMPARISON: 02/15/2022 Findings: Bowel gas pattern is nonspecific. No evidence for obstruction or free air. Right ureteral s tent has been removed since the prior exam. There are small right renal stones, with a suspected mid right ureteral stone. Osseous structures are intact. Impression: Interval removal of right ureteral stent. Small right renal stones and suspected small right midureteral stone (at the L3-L4 level). Reviewed, dictated and finalized at location [facility] [employer] Impression: Interval removal of right ureteral stent. Small right renal stones and suspected small right midureteral stone (at the L3 -L4 level).
== END ==
PROVIDERS: PCP Urology; Visit Provider Urology
DX: N20.1 Calculus of ureter (principal); N20.0 Calculus of kidney
CPT/HCPCS: 74018

== ENCOUNTER 2022-11-13 12:46 | Outpatient (NON) | payer BC, SELFPAY | END 2022-11-13 12:47 | disposition home or self-care (01) | LOC: ANHLAB 11-15 12:51 | PROVIDERS: PCP Urology; Visit Provider Nurse Practitioner | DX: C43.59 Malignant melanoma of other part of trunk (principal) | CPT/HCPCS: 88305 ==

== ENCOUNTER 2022-11-20 15:32 | Outpatient (NON) | payer BC, SELFPAY | END 2022-11-20 15:33 | disposition home or self-care (01) | LOC: ANHLAB 15:35 | PROVIDERS: PCP Urology; Visit Provider Nurse Practitioner | DX: C43.59 Malignant melanoma of other part of trunk (principal) | CPT/HCPCS: 88305 ==